=== PATIENT | male | born 1975 | race Caucasian/White ===

== ENCOUNTER 2023-09-18 00:41 | Emergency (ER) | payer MEDICAID ==
[~2023-09-18] VITALS: Ht 185.4 cm; Wt 65.0 kg
[2023-09-18 01:08] VITALS: BP 148/84; PULSE 86; RESP 18; TEMP 98.1; O2SAT 99
--- NOTE | 2023-09-18 03:45 | NUR ---
PATIENT REMOVED FROM LOBBY AFTER RECIEVING MULTIPLE COMPLAINTS FROM OTHER PATIENTS. PER SECURITY, PATIENT WAS TOLD ON VARIOUS OCCASIONS TO LEAVE OTHER PATIENTS IN THE LOBBY ALONE. PATIENT BEGAN TRYING TO GET THE NUMBERS OF FEMALES AWAITING ROOMS AND PROCEEDED TO KISS ONE PATIENT ON THE HAND.
== END 2023-09-18 03:46 | disposition left against medical advice (07) ==
LOC: ER 00:45
DX: G47.00 Insomnia, unspecified (principal); Z53.21 Procedure and treatment not carried out due to patient leaving prior to being seen by health care provider
CPT/HCPCS: 99281

== ENCOUNTER → 2023-10-11 | Emergency (ER) | payer MEDICAID ==
[~2023-10-11] VITALS: Ht 185.4 cm; Wt 63.0 kg
[~2023-10-11] MED LIST: CEPH-585 PO; SULF1TAB49 PO
[2023-10-11 18:17] VITALS: BP 148/92; PULSE 90; RESP 18; TEMP 98.9; O2SAT 98
--- NOTE | 2023-10-11 18:37 | NUR ---
I have reviewed and agree with all interventions, assessments performed and documented by Roxanne LORENZ LVN.
== END | disposition home or self-care (01) ==
LOC: ER 15:59
DX: L03.113 Cellulitis of right upper limb (principal)
CPT/HCPCS: 99283